=== PATIENT | female | born 1930 | race American Indian/Alaskan Native ===

== ENCOUNTER 2018-01-23 12:27 | Observation (INO) | payer OTHER ==
--- NOTE | 2018-01-23 13:33 | PDOC ---
History of Present Illness - General Chief Complaint: Pain Stated Complaint: HTN, abdominal pain History Source: Patient Exam Limitations: No Limitations - History of Present Illness Initial Comments: 01/23/18 13:35 87 yo F with hx of HTN, CAD (s/p stent 1x 2018), DM, HLD, and asthma BIBA from her adult day care program (pt lives by hersel for with abdominal pain that has been ongoing since yesterday. Per the patient son at bedside, he states his mother has severe short term memory loss (denies dementia dx). She began having sudden lower abdominal pain without radiation described as bloating and rated as 8/10 with partial relief gained using pepcid. Per the patient, her last BM was yesterday and denies hematochezia, diarrhea, nausea, vomiting, dysuria, hematuria, fever, chills, headache, vaginal bleeding/discharge, and leg pain/ swelling. Pmhx: Refer to above Shx: Denies abdominal surgeries. Denies surgery hx Meds: ezetimibe, acetaminophen, clopidogrel, and amlodipine. Allergies: NKDA Social: Denies tobacco, alcohol, and substance abuse Past History - Past Medical History Allergies/Adverse Reactions: Allergies Allergy/AdvReac Type Severity Reaction Status Date / Time No Known Allergies Allergy Unverified 01/23/18 12:46 Home Medications: Ambulatory Orders Acetaminophen 325 mg PO PRN 01/23/18 Amlodipine Besylate [Norvasc -] 5 mg PO DAILY 01/23/18 Clopidogrel Bisulfate [Plavix] 75 mg PO DAILY 01/23/18 Ezetimibe [Zetia -] 10 mg PO DAILY 01/23/18 Aspirin [ASA -] 81 mg PO DAILY 01/24/18 Ca/D3/Mag Ox/Zinc/Clinical Operations Specialist/Boaz/Bor [Cvs Calcium 600-D3 Plus Tablet] 1 each PO BID Carvedilol [Coreg] 6.25 mg PO BID 01/24/18 Losartan/Hydrochlorothiazide [Losartan-Hctz 50-12.5 mg Tab] 1 combo PO DAILY Memantine HCl [Namenda -] 10 mg PO DAILY 01/24/18 Asthma: Yes COPD: No Dementia: Yes (early Dementia? as reported by EMS) Diabetes: Yes HTN: Yes Hypercholesterolemia: Yes - Suicide/Smoking/Psychosocial Hx Smoking History: Never smoked Hx Alcohol Use: No Drug/Substance Use Hx: No Review of Systems - Review of Systems Able to Perform ROS?: Yes Is the patient limited Polish proficient: No Constitutional: No: Chills, Diaphoresis, Fever, Weakness HEENTM: No: Eye Pain, Recent change in vision, Ear Pain, Nose Pain, Throat Pain , Mouth Pain Respiratory: No: Cough, Shortness of Breath, Hemoptysis Cardiac (ROS): No: Chest Pain, Lightheadedness, Palpitations, Syncope, Chest Tightness ABD/GI: Yes: Abdominal cramping. No: Constipated, Diarrhea, Nausea, Poor Appetite, Poor Fluid Intake, Rectal Bleeding, Vomiting, Tarry Stools : Yes: Incontinence. No: Burning, Dysuria, Hematuria, Urgency Musculoskeletal: Yes: Back Pain (chronic). No: Joint Pain, Neck Pain Integumentary: No: Bruising Neurological: No: Headache, Numbness, Tremors, Ataxia, Dizziness Psychiatric: No: Stressors Endocrine: No: Excessive Sweating Hematologic/Lymphatic: No: Anemia *Physical Exam - Vital Signs Last Vital Signs Temp Pulse Resp BP Pulse Ox 97.8 F 70 18 171/85 H 97 01/23/18 12:41 01/23/18 12:41 01/23/18 12:41 01/23/18 12:41 01/23/18 12:41 - Physical Exam General Appearance: Yes: Nourished, Appropriately Dressed. No: Apparent Distress, Intoxicated HEENT: positive: EOMI, DAPHNE, Normal Voice, Symmetrical, Pharynx Normal, Hearing Grossly Normal. negative: Pale Conjunctivae, Scleral Icterus (R), Scleral Icterus (L), Muffled/Hoarse voice, Pharyngeal Erythema, Tonsillar Exudate, Excessive drooling Neck: positive: Trachea midline. negative: Tender, Lymphadenopathy (R), Lymphadenopathy (L), Tender lateral, Tender midline Respiratory/Chest: positive: Lungs Clear, Normal Breath Sounds. negative: Chest Tender, Respiratory Distress, Accessory Muscle Use, Crackles, Rales, Rhonchi, Stridor, Wheezing Cardiovascular: positive: Regular Rhythm, Regular Rate, S1, S2. negative: Systolic Murmur Gastrointestinal/Abdominal: positive: Tender (lower abdominal tenderness at suprapubic region. negative murphys), Flat, Soft, Increased Bowel Sounds. negative: Protuberent, Distended, Guarding, Rebound, Hernia Lymphatic: negative: Adenopathy Musculoskeletal: positive: Normal Inspection. negative: CVA Tenderness, Vertebral Tenderness Extremity: positive: Normal Capillary Refill, Normal Inspection, Normal Range of Motion. 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 negative: Fully Oriented (oriented to person only. per the son, she is at baseline) Moderate Sedation - Procedure Monitoring Vital Signs: Procedure Monitoring Vital Signs Temperature 97.8 F 01/23/18 12:41 Pulse Rate 70 01/23/18 12:41 Respiratory Rate 18 01/23/18 12:41 Blood Pressure 171/85 H 01/23/18 12:41 O2 Sat by Pulse Oximetry (%) 97 01/23/18 12:41 Heart Score/ECG Review - ECG Intrepretation Comment:: 01/23/18 16:31 ventricular rate is 70 bpm, VA 172 ms, QRS 78 ms. Normal sinus rhythm with q waves likely previous infarct in V1-V2. No st elevations or depressions noted. ED Treatment Course - LABORATORY CBC & Chemistry Diagram: 01/24/18 07:30 01/24/18 07:30 Medical Decision Making - Medical Decision Making 01/23/18 16:22 87 yo F with hx of HTN, CAD (s/p stent 1x 2017), DM, HLD, and asthma BIBA from her adult day care program (pt lives by [facility] for with abdominal pain that has been ongoing since yesterday. Initial vitals: Initial Vital Signs Temp Pulse Resp BP Pulse Ox 97.8 F 70 18 171/85 H 97 01/23/18 12:41 01/23/18 12:41 01/23/18 12:41 01/23/18 12:41 01/23/18 12:41 Work up: ddx: AAA, mesenteric ischemia, colitis, appendicitis, UTI, cystitis, constipation, SBO, volvulus. hx of cad with HLD and HTN is concerning for AAA. Laboratory Tests 01/23/18 01/23/18 01/23/18 13:23 13:23 13:23 WBC 8.7 RBC 4.59 Hgb 13.7 Hct 42.5 MCV 92.6 MCH 29.9 MCHC 32.3 RDW 14.3 Plt Count 124 L MPV 9.1 Absolute Neuts (auto) 7.1 Neutrophils % 81.7 Lymphocytes % 7.7 L Monocytes % 10.3 H Eosinophils % 0.1 Basophils % 0.2 Nucleated RBC % 0 PT with INR 12.40 INR 1.05 Sodium 136 Potassium 4.0 Chloride 102 Carbon Dioxide 28 Anion Gap 6 L BUN 21 H Creatinine 1.0 Creat Clearance w eGFR 52.45 Random Glucose 126 H Lactic Acid Calcium 7.9 L Total Bilirubin 0.6 AST 22 ALT 17 Alkaline Phosphatase 75 Creatine Kinase 176 Creatine Kinase Index 0.9 CK-MB (CK-2) 1.6 Troponin I 0.05 Total Protein 7.2 Albumin 3.0 L Lipase 122 Urine Color Urine Appearance Urine pH Ur Specific [place] Urine Protein Urine Glucose (UA) Urine Ketones Urine Blood Urine Nitrite Urine Bilirubin Urine Urobilinogen Ur Leukocyte Esterase Urine WBC (Auto) Urine RBC (Auto) Ur Epithelial Cells Urine Bacteria Urine Mucus 01/23/18 01/23/18 14:43 15:08 WBC RBC Hgb Hct MCV MCH MCHC RDW Plt Count MPV Absolute Neuts (auto) Neutrophils % Lymphocytes % Monocytes % Eosinophils % Basophils % Nucleated RBC % PT with INR INR Sodium Potassium Chloride Carbon Dioxide Anion Gap BUN Creatinine Creat Clearance w eGFR Random Glucose Lactic Acid 1.1 Calcium Total Bilirubin AST ALT Alkaline Phosphatase Creatine Kinase Creatine Kinase Index CK-MB (CK-2) Troponin I Total Protein Albumin Lipase Urine Color Yellow Urine Appearance Slcloudy Urine pH 6.0 Ur Specific [place] 1.015 Urine Protein 2+ H Urine Glucose (UA) Negative Urine Ketones Negative Urine Blood 1+ H Urine Nitrite Positive Urine Bilirubin Negative Urine Urobilinogen 2.0 H Ur Leukocyte Esterase 3+ H Urine WBC (Auto) 99 Urine RBC (Auto) 6 Ur Epithelial Cells Rare Urine Bacteria Moderate Urine Mucus Rare wbc was within normal limits. UA shows leuk est 3+, nitrite +, and moderate amount of bacteria. ct abdomen pelvis with oral and IV contrast shows no evidence of AAA enlargement (confirmed with our POCUS showing within normal limits aorta diameter), and no infection. bladder was consistent with cystitis. given the patient living by herself with health aides 3-7 pm daily with the son stating she has missed medications in the past she will need observation admission for IV ceftriaxone. Dispo: Admission *DC/Admit/Observation/Transfer Diagnosis at time of Disposition: UTI (urinary tract infection) Qualifiers: Urinary tract infection type: site unspecified Hematuria presence: without hematuria Qualified Code(s): N39.0 - Urinary tract infection, site not specified - Referrals - Patient Instructions - Post Discharge Activity
--- NOTE | 2018-01-23 13:35 | EKG ---
Test Reason : Blood Pressure : / mmHG Vent. Rate : 070 BPM Atrial Rate : 070 BPM P-R Int : 172 ms QRS Dur : 078 ms QT Int : 418 ms P-R-T Axes : -16 -29 016 degrees QTc Int : 451 ms NORMAL SINUS RHYTHM VOLTAGE CRITERIA FOR LEFT VENTRICULAR HYPERTROPHY CANNOT RULE OUT SEPTAL INFARCT , AGE UNDETERMINED ABNORMAL ECG NO PREVIOUS ECGS AVAILABLE Confirmed by RANDOLPH FREEMAN MD ([id number]) on 01/23/2018 1:35:34 PM Referred By: Confirmed By:RANDOLPH FREEMAN MD
[2018-01-23 13:45] LABS: BASO % 0.2 % (0-2.0); EOS % 0.1 % (0-4.5); HEMATOCRIT 42.5 % (32.4-45.2); HEMOGLOBIN 13.7 GM/dL (10.7-15.3); LYMPH % 7.7 % (8-40); MCH 29.9 pg (25.7-33.7); MCHC 32.3 g/dl (32.0-36.0); MEAN CELL VOLUME 92.6 fl (80-96); MEAN PLT VOLUME 9.1 fl (7.5-11.1); MONO % 10.3 % (3.8-10.2); NEUT % 81.7 % (42.8-82.8); PLATELET COUNT 124 K/MM3 (134-434); RBC 4.59 M/mm3 (3.60-5.2); RDW 14.3 % (11.6-15.6); WHITE BLOOD COUNT 8.7 K/mm3 (4.0-10.0)
[2018-01-23 13:57] LABS: INR 1.05 (0.83-1.09); PROTHROMBIN TIME (PATIENT) 12.4 SEC (9.7-13.0)
--- NOTE | 2018-01-23 14:10 | PDOC ---
Attending Attestation - HPI HPI: 01/23/18 14:32 The patient is an 87-year-old female with a past medical history significant for CAD s/p 1 Stent (?, 2018), HTN, and DM presents to the emergency department with lower abdominal pain since yesterday. The patient presents with a sudden onset of lower abdominal discomfort thats constant and bloating in nature, with mild relief noted with Pepcid. Denies dysuria, hematuria, diarrhea, nausea , vomiting. - Medical Decision Making 01/23/18 14:32 Documentation prepared by Kenzie Sanchez, acting as medical assistant instructor for Brian Workman MD. <Kenzie Sanchez - Last Filed: 01/23/18 14:32> - Resident Resident Name: Skyler Houston - ED Attending Attestation I have performed the following: I have examined & evaluated the patient, The case was reviewed & discussed with the resident, I agree w/resident's findings & plan, Exceptions are as noted - Physicial Exam PE: 01/23/18 16:17 Patient is awake and alert, well-nourished, in mild distress Normocephalic and atraumatic PERRLA, EOMI, no scleral icterus, conjunctiva are pink CTA RRR Abdomen is soft, nondistended, mild periumbilical and right-sided abdominal tenderness to deep palpation without guarding rebound, bowel sounds present in all 4 quadrants No CVA tenderness bilaterally - Medical Decision Making 01/23/18 16:19 Patient is an 87-year-old female with history of CAD who presents to the ER with periumbilical and right-sided abdominal pain associated with nausea. Differential diagnoses includes diverticulitis versus appendicitis versus mesenteric ischemia. Will hydrate, will obtain CT with by mouth and IV contrast. Will reassess. <Brian Workman - Last Filed: 01/23/18 16:20>
[2018-01-23 14:23] LABS: ALK PHOS 75 U/L (45-117); ANION GAP 6 MMOL/L (8-16); BILIRUBIN,TOTAL 0.6 mg/dL (0.2-1); BLOOD UREA NITROGEN 21 mg/dL (7-18); CALCIUM 7.9 mg/dL (8.5-10.1); CHLORIDE 102 mmol/L (98-107); CO2 28 mmol/L (21-32); GLUCOSE,RANDOM 126 mg/dL (74-106); LIPASE 122 U/L (73-393); SGOT/AST 22 U/L (15-37); SGPT/ALT 17 U/L (13-61); SODIUM 136 mmol/L (136-145); TOT PROT 7.2 g/dl (6.4-8.2)
[2018-01-23] MEDS ORDERED: SODIUM CHLORIDE 500 ML IV STA (14:27)
[2018-01-23] MEDS ORDERED: ACETAMINOPHEN 1000 MG/100 ML VIAL (NON FORMULARY) IVPB ONE (14:29)
[2018-01-23] MEDS ORDERED: ACETAMINOPHEN INJECTION 100 ML IVPB ONE (14:48)
[2018-01-23 15:41] LABS: URINE APPEARANCE SLCLOUDY; URINE BILIRUBIN NEGATIVE (<2.0 mg/dL); URINE COLOR YELLOW; URINE GLUCOSE (UA) NEGATIVE (NEGATIVE); URINE KETONE NEGATIVE (NEGATIVE); URINE LEUK ESTERASE 3+ (NEGATIVE); URINE NITRITE POSITIVE (NEGATIVE); URINE PROTEIN 2+ (NEGATIVE)
[2018-01-23 15:54] LABS: EPI CELLS RARE /HPF (FEW); URINE BACTERIA MODERATE /hpf (NONE SEEN); URINE MUCUS RARE
[2018-01-23] MEDS ORDERED: CEFTRIAXONE 1,000 MG in DEXTROSE 5%-WATER - 50 ML IVPB ONE (16:29)
[2018-01-23] MEDS ORDERED: CEFTRIAXONE 1 GM/50 ML BAG ONE (16:39)
--- NOTE | 2018-01-23 20:48 | PN ---
Teaching Attending Note Name of Resident: Amanda Oneill ATTENDING PHYSICIAN STATEMENT I saw and evaluated the patient. I reviewed the resident's note and discussed the case with the resident. I agree with the resident's findings and plan as documented. SUBJECTIVE: Patient is an 87 year old woman with history of HTN, early dementia, CAD (s/p stent 1x 2018), NIDDM, HLD, and asthma brought from her Adult Day Care program ( she lives alone) for abdominal pain that has been ongoing since yesterday. Per the patient son at bedside, he states his mother has severe short term memory loss. She began having sudden lower abdominal pain without radiation described as bloating and rated as 8/10 with partial relief gained using pepcid. Per the patient, her last BM was yesterday and denies hematochezia, diarrhea, nausea, vomiting, dysuria, hematuria, fever, chills, headache, vaginal bleeding/ discharge, and leg pain/swelling. OBJECTIVE: Alert Vital Signs Period Temp Pulse Resp BP Sys/Tena Pulse Ox Last 24 Hr 97.8 F-97.9 F 63-70 17-18 150-189/74-90 97-100 HEENT: No Jaundice, eye redness or discharge, PERRLA, EOMI. Normocephalic, atraumatic. External ears are normal and hearing is grossly intact. No nasal discharge. Neck: Supple, nontender. No palpable adenopathy or thyromegaly. No JVD Chest: Good effort. Clear to auscultation and percussion. Heart: Regular. No S3, rub or murmur Abdomen: Not distended, soft, lower abdominal and periumblical tenderness and no HSM. No rebound or guarding. Normoactive bowel sounds. Ext: Peripheral pulses intact. No leg edema. Skin: Warm and dry. No petechiae, rash or ecchymosis. Neuro: Alert. Oriented person. CN 2-12 grossly intact. Sensation grossly intact in all four extremities and DTR are symmetric. Home Medications Medication Instructions Recorded Acetaminophen 325 mg PO PRN 01/23/18 Amlodipine Besylate [Norvasc -] 5 mg PO DAILY 01/23/18 Clopidogrel Bisulfate [Plavix] 75 mg PO DAILY 01/23/18 Ezetimibe [Zetia -] 10 mg PO DAILY 01/23/18 Abnormal Lab Results 01/23/18 01/23/18 01/23/18 13:23 13:23 15:08 Plt Count 124 L Lymphocytes % 7.7 L Monocytes % 10.3 H Anion Gap 6 L BUN 21 H Random Glucose 126 H Calcium 7.9 L Albumin 3.0 L Urine Protein 2+ H Urine Blood 1+ H Urine Urobilinogen 2.0 H Ur Leukocyte Esterase 3+ H ASSESSMENT AND PLAN: 1. UTI - Being treated with Rocephin 1 gm IV q 24 hours pending culture report. No evidence of colitis or diverticulitis on CT abdomen. Will restart home antihypertensive drugs to attain normotension. Nonpharmacologic measures to control hypertension like weight loss, salt restriction and exercise discussed. Monitor low platelets. 2. Hypoalbuminemia - Possibly due to combined effects of malnutrition and inflammation associated with comorbid chronic conditions. Will ensure adequate dietary protein intake and also consult car body mechanic. 3. DM - Will implement sliding scale insulin regimen. Provide comprehensive diabetes care with patient teaching and counseling about the importance of euglycemia, eye care and foot care. 4.DVT prophylaxis - Lovenox 40 mg SQ q 24 hours. 5. Advance directives - Full code
[2018-01-23] MEDS ORDERED: SODIUM CHLORIDE 500 ML IV SCH (21:15)
--- NOTE | 2018-01-23 21:25 | HP ---
CHIEF COMPLAINT: Abdominal Pain PCP: Dr. Jimenez Arriaza HISTORY OF PRESENT ILLNESS: 87 y/o F with PMHx of HTN, CAD (s/p stent x1), DM, HLD, Asthma, Short term memory loss (No Dementia Dx) presents with Abdominal pain from her adult daycare center. Patient was accompanied by her son, Rene ([phone]), who provided most of the history. After eating dinner yesterday, patient began to feel discomfort that improved with pepcid. This morning, patient went to her Adult daycare where she was given breakfast. Approx. 2 hours later, patients son was called as patient began to experience severe discomfort, and she was brought to the ED. The discomfort came on all of a sudden and is described as a constant 8/10 bloating that did not radiate. This is the first time patient has experienced this. Denies any associated nausea, vomiting, diarrhea, constipation , weight loss, decreased PO Intake or loss of appetite. Patients Last BM was yesterday evening. During my interview, patient was eating Crackers and sipping on juice. Additionally her abdominal discomfort had significantly improved. Patient endorses chronic urinary frequency and urinary urgency. Denies any fevers, chills, chest pain, SOB, dysuria, hematuria, hematemesis, bloody stools. 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 Ambulation: With Cane Family History: Denies Allergies No Known Allergies Allergy (Unverified 01/23/18 12:46) HOME MEDICATIONS: Home Medications Medication Instructions Recorded Acetaminophen 325 mg PO PRN 01/23/18 Amlodipine Besylate [Norvasc -] 5 mg PO DAILY 01/23/18 Clopidogrel Bisulfate [Plavix] 75 mg PO DAILY 01/23/18 Ezetimibe [Zetia -] 10 mg PO DAILY 01/23/18 REVIEW OF SYSTEMS As per HPI PHYSICAL EXAMINATION Vital Signs - 24 hr 01/23/18 01/23/18 01/23/18 12:41 15:20 19:44 Temperature 97.8 F 97.9 F Pulse Rate 70 Pulse Rate [ 68 63 Apical] Respiratory 18 18 17 Rate Blood Pressure 171/85 H Blood Pressure 189/90 H 150/74 [Right Arm] O2 Sat by Pulse 97 100 97 Oximetry (%) GENERAL: A&Ox3, NAD, Sitting with bed upright HEAD: NCAT EYES: PERRL, EOMI EARS, NOSE, THROAT: Oropharynx clear without exudates. Moist mucous membranes. NECK: No lymphadenopathy or JVD LUNGS: Breath sounds equal, clear to auscultation bilaterally. No wheezes HEART: Regular rate and rhythm, normal S1 and S2 without murmur ABDOMEN: Soft, Discomfort upon palpation of the Suprapubic region and RUQ, not distended, + bowel sounds, no guarding, no rebound, Negative murphys sign, Negative Lloyds punch MUSCULOSKELETAL: No CVA tenderness. EXTREMITIES: 2+ pulses, No calf tenderness. Trace peripheral edema. NEUROLOGICAL: Cranial nerves II-XII intact. Normal speech. Gross sensation intact globally. 5/5 Muscles strength throughout. SKIN: Warm, dry, no rashes or lesions noted, normal capillary refill. Laboratory Results - last 24 hr 01/23/18 01/23/18 01/23/18 13:23 13:23 13:23 WBC 8.7 RBC 4.59 Hgb 13.7 Hct 42.5 MCV 92.6 MCH 29.9 MCHC 32.3 RDW 14.3 Plt Count 124 L MPV 9.1 Absolute Neuts (auto) 7.1 Neutrophils % 81.7 Lymphocytes % 7.7 L Monocytes % 10.3 H Eosinophils % 0.1 Basophils % 0.2 Nucleated RBC % 0 PT with INR 12.40 INR 1.05 Sodium 136 Potassium 4.0 Chloride 102 Carbon Dioxide 28 Anion Gap 6 L BUN 21 H Creatinine 1.0 Creat Clearance w eGFR 52.45 Random Glucose 126 H Lactic Acid Calcium 7.9 L Total Bilirubin 0.6 AST 22 ALT 17 Alkaline Phosphatase 75 Creatine Kinase 176 Creatine Kinase Index 0.9 CK-MB (CK-2) 1.6 Troponin I 0.05 Total Protein 7.2 Albumin 3.0 L Lipase 122 Urine Color Urine Appearance Urine pH Ur Specific [place] Urine Protein Urine Glucose (UA) Urine Ketones Urine Blood Urine Nitrite Urine Bilirubin Urine Urobilinogen Ur Leukocyte Esterase Urine WBC (Auto) Urine RBC (Auto) Ur Epithelial Cells Urine Bacteria Urine Mucus 01/23/18 01/23/18 14:43 15:08 WBC RBC Hgb Hct MCV MCH MCHC RDW Plt Count MPV Absolute Neuts (auto) Neutrophils % Lymphocytes % Monocytes % Eosinophils % Basophils % Nucleated RBC % PT with INR INR Sodium Potassium Chloride Carbon Dioxide Anion Gap BUN Creatinine Creat Clearance w eGFR Random Glucose Lactic Acid 1.1 Calcium Total Bilirubin AST ALT Alkaline Phosphatase Creatine Kinase Creatine Kinase Index CK-MB (CK-2) Troponin I Total Protein Albumin Lipase Urine Color Yellow Urine Appearance Slcloudy Urine pH 6.0 Ur Specific [place] 1.015 Urine Protein 2+ H Urine Glucose (UA) Negative Urine Ketones Negative Urine Blood 1+ H Urine Nitrite Positive Urine Bilirubin Negative Urine Urobilinogen 2.0 H Ur Leukocyte Esterase 3+ H Urine WBC (Auto) 99 Urine RBC (Auto) 6 Ur Epithelial Cells Rare Urine Bacteria Moderate Urine Mucus Rare Active Medications Enoxaparin Sodium (Lovenox -) 40 mg SQ DAILY SHANTE Insulin Aspart (Novolog Vial Sliding Scale -) 1 vial SQ ACHS SHANTE; Protocol IMAGING -CXR: No evidence of active pulmonary disease. Uncoiled thoracic aorta. Prominent cardiac silhouette. -CT A/P with contrast: No definite CT findings of acute pathology are identified. 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 Probable diffuse hepatic steatosis. Mild diffuse left renal cortical atrophy. Probable mild diffuse urinary bladder wall thickening - ? acute and/or chronic cystitis. A moderate to marked T12 vertebral body compression fracture is noted with mild bony retropulsion. This fracture is probably subacute or chronic. If there is ongoing symptomatology MRI evaluation is suggested, nonemergent unless otherwise clinically indicated. ASSESSMENT/PLAN: 87 y/o F with PMHx of HTN, CAD, DM, Short term memory loss presents with Abdominal pain. #UTI -UA reveals 1+ Blood, Nitrite positive, 3+ LE, 99 WBC, Moderate bacteria -Urine Cx pending -Pelvis CT Noted above -RUQ US ordered given Abd discomfort -Continue Ceftriaxone 1gm #DM -ISS BGMs ACHS #CAD with recent stenting -Continue Plavix #Hx of HTN -Can continue home dose Norvasc, Will need Med-Rec #FEN -Given 1/2L NS in ED; Continue on PO Fluids -Lytes WNL -Diabetic, Low sodium, low cholesterol diet #PPx -DVT: Lovenox Dispo: Observe on Med-Surg, Will need Med-Rec Visit type - Emergency Visit Emergency Visit: Yes ED Registration Date: 01/23/18 Care time: The patient presented to the Emergency Department on the above date and was hospitalized for further evaluation of their emergent condition. - New Patient This patient is new to me today: Yes Date on this admission: 01/25/18 - Critical Care Critical Care patient: No
[2018-01-23] MEDS: INSULIN SLIDING SCALE (NOVOLOG) 1 VIAL SQ SCH (23:13)
[2018-01-24] MEDS: ACETAMINOPHEN 325 MG TABLET (FP) PO ONE ×2 (02:17→03:23)
[2018-01-24 03:04] VITALS: BMI 23.1
[2018-01-24] MEDS: INSULIN SLIDING SCALE (NOVOLOG) 1 VIAL SQ SCH ×2 (06:11→12:03)
[2018-01-24 08:12] LABS: ALBUMIN 2.6 g/dl (3.4-5.0); ALK PHOS 63 U/L (45-117); ANION GAP 5 MMOL/L (8-16); BILIRUBIN,TOTAL 0.3 mg/dL (0.2-1); BLOOD UREA NITROGEN 15 mg/dL (7-18); CALCIUM 8.1 mg/dL (8.5-10.1); CHLORIDE 106 mmol/L (98-107); CO2 29 mmol/L (21-32); CREATININE 0.9 mg/dL (0.55-1.3); GLUCOSE,RANDOM 115 mg/dL (74-106); MAGNESIUM 2.7 mg/dL (1.8-2.4); PHOSPHOROUS 2.8 mg/dL (2.5-4.9); SGOT/AST 15 U/L (15-37); SGPT/ALT 16 U/L (13-61); SODIUM 140 mmol/L (136-145); TOT PROT 6.3 g/dl (6.4-8.2)
[2018-01-24 08:24] LABS: BASO % 0.2 % (0-2.0); EOS % 0.3 % (0-4.5); HEMATOCRIT 37.7 % (32.4-45.2); HEMOGLOBIN 13.1 GM/dL (10.7-15.3); LYMPH % 13.6 % (8-40); MCH 31.8 pg (25.7-33.7); MCHC 34.8 g/dl (32.0-36.0); MEAN CELL VOLUME 91.3 fl (80-96); MEAN PLT VOLUME 9.1 fl (7.5-11.1); MONO % 12.7 % (3.8-10.2); NEUT % 73.2 % (42.8-82.8); PLATELET COUNT 137 K/MM3 (134-434); RBC 4.13 M/mm3 (3.60-5.2); RDW 14.3 % (11.6-15.6); WHITE BLOOD COUNT 6.4 K/mm3 (4.0-10.0)
--- NOTE | 2018-01-24 08:57 | PN ---
Teaching Attending Note Name of Resident: Rylee Turner ATTENDING PHYSICIAN STATEMENT I saw and evaluated the patient. I reviewed the resident's note and discussed the case with the resident. I agree with the resident's findings and plan as documented. SUBJECTIVE: Patient is feeling better with no acute distress, no nausea or vomiting. Son is at bedside. OBJECTIVE: Vital Signs Temperature 98.2 F 01/24/18 02:00 Pulse Rate 72 01/24/18 02:00 Respiratory Rate 20 01/24/18 05:10 Blood Pressure 158/69 01/24/18 02:00 O2 Sat by Pulse Oximetry (%) 98 01/24/18 05:10 GENERAL: AAOx3, NAD, Sitting in bed comfortably. HEAD: NCAT, EYES: PERRL, EOMI EARS, NOSE, THROAT: Oropharynx clear without exudates. MMM. NECK: No lymphadenopathy or JVD LUNGS: Breath sounds equal, clear to auscultation bilaterally. No wheezes HEART: Regular rate and rhythm, normal S1 and S2 without murmur ABDOMEN: Soft, NT,ND, + bowel sounds. no guarding, no rebound. EXTREMITIES: 2+ pulses, No calf tenderness. Trace peripheral edema. NEUROLOGICAL: Cranial nerves II-XII intact. Normal speech. SKIN: Warm, dry, no rashes or lesions noted, normal capillary refill. CBCD WBC 6.4 K/mm3 (4.0-10.0) 01/24/18 07:30 RBC 4.13 M/mm3 (3.60-5.2) 01/24/18 07:30 Hgb 13.1 GM/dL (10.7-15.3) 01/24/18 07:30 Hct 37.7 % (32.4-45.2) 01/24/18 07:30 MCV 91.3 fl (80-96) 01/24/18 07:30 MCHC 34.8 g/dl (32.0-36.0) 01/24/18 07:30 RDW 14.3 % (11.6-15.6) 01/24/18 07:30 Plt Count 137 K/MM3 (134-434) 01/24/18 07:30 MPV 9.1 fl (7.5-11.1) 01/24/18 07:30 CMP Sodium 140 mmol/L (136-145) 01/24/18 07:30 Potassium 4.0 mmol/L (3.5-5.1) 01/24/18 07:30 Chloride 106 mmol/L (98-107) 01/24/18 07:30 Carbon Dioxide 29 mmol/L (21-32) 01/24/18 07:30 Anion Gap 5 MMOL/L (8-16) L 01/24/18 07:30 BUN 15 mg/dL (7-18) 01/24/18 07:30 Creatinine 0.9 mg/dL (0.55-1.3) 01/24/18 07:30 Creat Clearance w eGFR 59.23 (>60) 01/24/18 07:30 Random Glucose 115 mg/dL (74-106) H 01/24/18 07:30 Calcium 8.1 mg/dL (8.5-10.1) L 01/24/18 07:30 Total Bilirubin 0.3 mg/dL (0.2-1) 01/24/18 07:30 AST 15 U/L (15-37) 01/24/18 07:30 ALT 16 U/L (13-61) 01/24/18 07:30 Alkaline Phosphatase 63 U/L (45-117) 01/24/18 07:30 Total Protein 6.3 g/dl (6.4-8.2) L 01/24/18 07:30 Albumin 2.6 g/dl (3.4-5.0) L 01/24/18 07:30 CARDIAC ENZYMES Creatine Kinase 176 IU/L (26-192) 01/23/18 13:23 Troponin I 0.05 ng/ml (0.00-0.05) 01/23/18 13:23 Current Medications Generic Name Dose Route Start Last Admin Trade Name Freq PRN Reason Stop Dose Admin Clopidogrel Bisulfate 75 mg 01/24/18 10:00 Plavix - PO DAILY [facility] Aspirin 81mg po daily Enoxaparin Sodium 40 mg 01/24/18 10:00 Lovenox - SQ DAILY [facility] Insulin Aspart 1 vial 01/23/18 22:00 01/24/18 06:11 Novolog Vial Sliding Scale - SQ Not Given ACHS [facility] Protocol Home Medications Medication Instructions Recorded Acetaminophen 325 mg PO PRN 01/23/18 Amlodipine Besylate [Norvasc -] 5 mg PO DAILY 01/23/18 Clopidogrel Bisulfate [Plavix] 75 mg PO DAILY 01/23/18 Ezetimibe [Zetia -] 10 mg PO DAILY 01/23/18 Urine Test Results Urine Color Yellow 01/23/18 15:08 Urine Appearance Slcloudy 01/23/18 15:08 Urine pH 6.0 (5.0-8.0) 01/23/18 15:08 Ur Specific [place] 1.015 (1.010-1.035) 01/23/18 15:08 Urine Protein 2+ (NEGATIVE) H 01/23/18 15:08 Urine Glucose (UA) Negative (NEGATIVE) 01/23/18 15:08 Urine Ketones Negative (NEGATIVE) 01/23/18 15:08 Urine Blood 1+ (NEGATIVE) H 01/23/18 15:08 Urine Nitrite Positive (NEGATIVE) 01/23/18 15:08 Urine Bilirubin Negative (<2.0 mg/dL) 01/23/18 15:08 Ur Leukocyte Esterase 3+ (NEGATIVE) H 01/23/18 15:08 Ur Epithelial Cells Rare /HPF (FEW) 01/23/18 15:08 Urine Bacteria Moderate /hpf (NONE SEEN) 01/23/18 15:08 Urine Mucus Rare 01/23/18 15:08 Microbiology 01/23/18 15:00 Urine - Urine Clean Catch Urine Culture - Preliminary Lactose Fermenting Neg Bacilli -CXR: No evidence of active pulmonary disease. Uncoiled thoracic aorta. Prominent cardiac silhouette. -CT A/P with contrast: No definite CT findings of acute pathology are identified. 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 Probable diffuse hepatic steatosis. Mild diffuse left renal cortical atrophy. Probable mild diffuse urinary bladder wall thickening - ? acute and/or chronic cystitis. A moderate to marked T12 vertebral body compression fracture is noted with mild bony retropulsion. This fracture is probably subacute or chronic. If there is ongoing symptomatology MRI evaluation is suggested, non emergent unless otherwise clinically indicated. ASSESSMENT AND PLAN: Patient is an 87 y/o Female with PMHx of HTN, CAD, DM, Short term memory loss presents with Abdominal pain and was found to have UTI #Acute UTI on Rocephin improving, waiting for sensitivity for possible discharge in am #T2DM ISS BGMs ACHS #CAD with recent stenting, Continue Plavix and aspirin 81mg #Hx of HTN continue home Norvasc DVt Px: Lovenox discharge in am one sensitivity is available
[2018-01-24] MEDS: CLOPIDOGREL BISULFATE 75 MG TABLET (FP) PO SCH (10:33)
[2018-01-24] MEDS ORDERED: INSULIN (NOVOLOG) ASPART 100 UNITS/ML 10ML VIAL ONE ×2 (11:17→17:52)
[2018-01-24] MEDS ORDERED: cefTRIAXone SODIUM 1 GM VIAL ONE (11:40)
[2018-01-24] MEDS ORDERED: DEXTROSE 5%-WATER - 50 ML IVPB ONE (11:40)
[2018-01-24] MEDS: CEFTRIAXONE 1 GM in DEXTROSE 5%-WATER - 50 ML IVPB SCH (11:46)
[2018-01-24] MEDS: ENOXAPARIN NA (PORCINE) 40 MG/0.4 ML DISP.SYRIN SQ SCH (11:47)
[2018-01-24] MEDS: amLODIPine BESYLATE 5 MG TABLET (FP) PO SCH (11:47)
[2018-01-24] MEDS: EZETIMIBE 10 MG TABLET (FP) PO SCH (11:47)
[2018-01-24] MEDS ORDERED: LOSARTAN 50MG/HCTZ 12.5MG 1 TAB (FP) PO SCH (13:45)
[2018-01-24] MEDS ORDERED: [UNRECOGNIZED DRUG - OTHER] PO SCH (13:45)
--- NOTE | 2018-01-24 14:10 | PN ---
Physical Exam: SUBJECTIVE: Patient seen and examined at bedside. No acute events overnight. Pt denies bender/d, f/c, n/v, chest pain, sob, abd pain, urinary/bowel symptoms, blood in urine/stool. Son present at bedside. OBJECTIVE: Vital Signs Temperature 98.6 F 01/24/18 10:00 Pulse Rate 69 01/24/18 10:00 Respiratory Rate 18 01/24/18 10:00 Blood Pressure 173/84 H 01/24/18 10:00 O2 Sat by Pulse Oximetry (%) 98 01/24/18 05:10 GENERAL: A&Ox3, NAD, Sitting with bed upright HEAD: NCAT EYES: PERRL, EOMI EARS, NOSE, THROAT: Oropharynx clear without exudates. Moist mucous membranes. NECK: No lymphadenopathy or JVD LUNGS: Breath sounds equal, clear to auscultation bilaterally. No wheezes HEART: Regular rate and rhythm, normal S1 and S2 without murmur ABDOMEN: Soft, NT/ND. + bowel sounds, no guarding, no rebound, Negative murphys sign, MUSCULOSKELETAL: No CVA tenderness. EXTREMITIES: 2+ pulses, No calf tenderness. Trace peripheral edema. NEUROLOGICAL: Cranial nerves II-XII intact. Normal speech. Gross sensation intact globally. 5/5 Muscles strength throughout. SKIN: Warm, dry, no rashes or lesions noted, normal capillary refill. CBCD WBC 6.4 K/mm3 (4.0-10.0) 01/24/18 07:30 RBC 4.13 M/mm3 (3.60-5.2) 01/24/18 07:30 Hgb 13.1 GM/dL (10.7-15.3) 01/24/18 07:30 Hct 37.7 % (32.4-45.2) 01/24/18 07:30 MCV 91.3 fl (80-96) 01/24/18 07:30 MCHC 34.8 g/dl (32.0-36.0) 01/24/18 07:30 RDW 14.3 % (11.6-15.6) 01/24/18 07:30 Plt Count 137 K/MM3 (134-434) 01/24/18 07:30 MPV 9.1 fl (7.5-11.1) 01/24/18 07:30 CMP Sodium 140 mmol/L (136-145) 01/24/18 07:30 Potassium 4.0 mmol/L (3.5-5.1) 01/24/18 07:30 Chloride 106 mmol/L (98-107) 01/24/18 07:30 Carbon Dioxide 29 mmol/L (21-32) 01/24/18 07:30 Anion Gap 5 MMOL/L (8-16) L 01/24/18 07:30 BUN 15 mg/dL (7-18) 01/24/18 07:30 Creatinine 0.9 mg/dL (0.55-1.3) 01/24/18 07:30 Creat Clearance w eGFR 59.23 (>60) 01/24/18 07:30 Calcium 8.1 mg/dL (8.5-10.1) L 01/24/18 07:30 Total Bilirubin 0.3 mg/dL (0.2-1) 01/24/18 07:30 AST 15 U/L (15-37) 01/24/18 07:30 ALT 16 U/L (13-61) 01/24/18 07:30 Alkaline Phosphatase 63 U/L (45-117) 01/24/18 07:30 Total Protein 6.3 g/dl (6.4-8.2) L 01/24/18 07:30 Albumin 2.6 g/dl (3.4-5.0) L 01/24/18 07:30 Active Medications Amlodipine Besylate (Norvasc -) 5 mg PO DAILY [facility] Last Admin: 01/24/18 11:47 Dose: 5 mg Aspirin (Asa -) 81 mg PO DAILY [facility] Carvedilol (Coreg -) 6.25 mg PO BID [facility] Clopidogrel Bisulfate (Plavix -) 75 mg PO DAILY [facility] Last Admin: 01/24/18 10:33 Dose: 75 mg Ezetimibe (Zetia -) 10 mg PO DAILY [facility] Last Admin: 01/24/18 11:47 Dose: 10 mg Enoxaparin Sodium (Lovenox -) 40 mg SQ DAILY [facility] Last Admin: 01/24/18 11:47 Dose: 40 mg HCTZ/Losartan Potassium (Hyzaar -) tab PO DAILY [facility] Ceftriaxone Sodium 1 gm/ (Dextrose) 50 mls @ 100 mls/hr IVPB DAILY [facility]; Protocol Last Admin: 01/24/18 11:46 Dose: 100 mls/hr Memantine (Namenda -) 10 mg PO DAILY [facility] Non-Formulary Medication (Ca/D3/Mag Ox/Zinc/Administrator Of Home Health/Boaz/Bor [Cvs Calcium 600-D3 Plus Tablet]) 1 each PO BID [facility] IMAGING: * CXR: No evidence of active pulmonary disease. Uncoiled thoracic aorta. Prominent cardiac silhouette. * CT A/P with contrast: No definite CT findings of acute pathology are identified. 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 Probable diffuse hepatic steatosis. Mild diffuse left renal cortical atrophy. Probable mild diffuse urinary bladder wall thickening - ? acute and/or chronic cystitis. A moderate to marked T12 vertebral body compression fracture is noted with mild bony retropulsion. This fracture is probably subacute or chronic. If there is ongoing symptomatology MRI evaluation is suggested, nonemergent unless otherwise clinically indicated. * Abd U/S: Slight prominence of CBD and main pancreatic duct, otherwise normal. ASSESSMENT/PLAN: 87 y/o F with PMHx of HTN, CAD, DM, Short term memory loss presents with Abdominal pain. #UTI -UA reveals 1+ Blood, Nitrite positive, 3+ LE, 99 WBC; UCx showed lac- fermenting GNB -Pelvis CT and Abd u/s noted above -Continue Ceftriaxone 1gm daily -Await C/S for UCx, then switch to PO abx #CAD with recent stenting Cont home med: -Plavix 75 PO QD -Aspirin 81 PO QD -Coreg 6.25 PO qD #Hx of HTN Cont home meds: -Amlodipine 5 PO QD -Hyzaar QD #Dementia -Memantine 10 PO QD #FEN -Given 1/2L NS in ED; Continue on PO Fluids -Lytes WNL -Diabetic, Low sodium, low cholesterol diet #PPx -DVT: Lovenox 40 SQ QD Dispo -cont to monitor on med-surg -meds reconciled Visit type - Emergency Visit Emergency Visit: Yes ED Registration Date: 01/23/18 Care time: The patient presented to the Emergency Department on the above date and was hospitalized for further evaluation of their emergent condition. - New Patient This patient is new to me today: Yes Date on this admission: 01/24/18 - Critical Care Critical Care patient: No
[2018-01-24] MEDS: ASPIRIN 81 MG CHEWABLE TABLETS PO SCH (15:29)
[2018-01-24] MEDS: MEMANTINE HCL 10 MG TABLET (FP) PO SCH (15:29)
[2018-01-24] MEDS: CARVEDILOL 6.25 MG TABLET (FP) PO SCH ×2 (15:29→21:59)
[2018-01-24] MEDS ORDERED: PT OWN MED DRAWER 7, Y5N ONE (17:52)
[2018-01-24] MEDS: CALCIUM 500MG/VIT-D 200 UNITS COMBO TABLET (FP) PO SCH (21:59)
[2018-01-25 07:13] LABS: HEMATOCRIT 38.2 % (32.4-45.2); HEMOGLOBIN 12.7 GM/dL (10.7-15.3); MCH 30.9 pg (25.7-33.7); MCHC 33.3 g/dl (32.0-36.0); MEAN CELL VOLUME 92.8 fl (80-96); MEAN PLT VOLUME 9.4 fl (7.5-11.1); PLATELET COUNT 140 K/MM3 (134-434); RBC 4.12 M/mm3 (3.60-5.2); RDW 14.5 % (11.6-15.6); WHITE BLOOD COUNT 4.5 K/mm3 (4.0-10.0)
[2018-01-25 07:23] LABS: ANION GAP 7 MMOL/L (8-16); BLOOD UREA NITROGEN 15 mg/dL (7-18); CALCIUM 8.2 mg/dL (8.5-10.1); CHLORIDE 109 mmol/L (98-107); CO2 26 mmol/L (21-32); CREATININE 0.8 mg/dL (0.55-1.3); GLUCOSE,RANDOM 89 mg/dL (74-106); POTASSIUM 4.3 mmol/L (3.5-5.1); SODIUM 142 mmol/L (136-145)
[2018-01-25] MEDS ORDERED: LOSARTAN POTASSIUM 50 MG TABLET (FP) PO SCH (10:00)
--- NOTE | 2018-01-25 10:09 | PN ---
Teaching Attending Note Name of Resident: Rylee Turner ATTENDING PHYSICIAN STATEMENT I saw and evaluated the patient. I reviewed the resident's note and discussed the case with the resident. I agree with the resident's findings and plan as documented. SUBJECTIVE: Patient is feeling better with no acute distress. OBJECTIVE: Vital Signs Temperature 97.4 F L 01/25/18 06:00 Pulse Rate 56 L 01/25/18 06:00 Respiratory Rate 20 01/25/18 06:00 Blood Pressure 158/78 01/25/18 06:00 O2 Sat by Pulse Oximetry (%) 97 01/25/18 05:00 GENERAL: AAOx3, NAD, Sitting in bed comfortably. HEAD: NCAT, EYES: PERRL, EOMI EARS, NOSE, THROAT: Oropharynx clear without exudates. MMM. NECK: No lymphadenopathy or JVD LUNGS: Breath sounds equal, clear to auscultation bilaterally. No wheezes HEART: Regular rate and rhythm, normal S1 and S2 without murmur ABDOMEN: Soft, NT,ND, + bowel sounds. no guarding, no rebound. EXTREMITIES: 2+ pulses, No calf tenderness. no edema NEUROLOGICAL: Cranial nerves II-XII intact. Normal speech. SKIN: Warm, dry, no rashes or lesions noted, normal capillary refill. CBCD WBC 4.5 K/mm3 (4.0-10.0) 01/25/18 06:00 RBC 4.12 M/mm3 (3.60-5.2) 01/25/18 06:00 Hgb 12.7 GM/dL (10.7-15.3) 01/25/18 06:00 Hct 38.2 % (32.4-45.2) 01/25/18 06:00 MCV 92.8 fl (80-96) 01/25/18 06:00 MCHC 33.3 g/dl (32.0-36.0) 01/25/18 06:00 RDW 14.5 % (11.6-15.6) 01/25/18 06:00 Plt Count 140 K/MM3 (134-434) 01/25/18 06:00 MPV 9.4 fl (7.5-11.1) 01/25/18 06:00 CMP Sodium 142 mmol/L (136-145) 01/25/18 06:00 Potassium 4.3 mmol/L (3.5-5.1) 01/25/18 06:00 Chloride 109 mmol/L (98-107) H 01/25/18 06:00 Carbon Dioxide 26 mmol/L (21-32) 01/25/18 06:00 Anion Gap 7 MMOL/L (8-16) L 01/25/18 06:00 BUN 15 mg/dL (7-18) 01/25/18 06:00 Creatinine 0.8 mg/dL (0.55-1.3) 01/25/18 06:00 Creat Clearance w eGFR > 60 (>60) 01/25/18 06:00 Random Glucose 89 mg/dL (74-106) 01/25/18 06:00 Calcium 8.2 mg/dL (8.5-10.1) L 01/25/18 06:00 Total Bilirubin 0.3 mg/dL (0.2-1) 01/24/18 07:30 AST 15 U/L (15-37) 01/24/18 07:30 ALT 16 U/L (13-61) 01/24/18 07:30 Alkaline Phosphatase 63 U/L (45-117) 01/24/18 07:30 Total Protein 6.3 g/dl (6.4-8.2) L 01/24/18 07:30 Albumin 2.6 g/dl (3.4-5.0) L 01/24/18 07:30 CARDIAC ENZYMES Creatine Kinase 176 IU/L (26-192) 01/23/18 13:23 Troponin I 0.05 ng/ml (0.00-0.05) 01/23/18 13:23 Current Medications Generic Name Dose Route Start Last Admin Trade Name Freq PRN Reason Stop Dose Admin Amlodipine Besylate 5 mg 01/24/18 11:00 01/24/18 11:47 Norvasc - PO 5 mg DAILY [facility] Administration Aspirin 81 mg 01/24/18 13:45 01/24/18 15:29 Asa - PO 81 mg DAILY [facility] Administration Calcium Carbonate/Cholecalciferol 1 tab 01/24/18 22:00 01/24/18 21:59 Os-Tone 500+D - PO 1 tab BID [facility] Administration Carvedilol 6.25 mg 01/24/18 13:45 01/24/18 21:59 Coreg - PO 6.25 mg BID [facility] Administration Clopidogrel Bisulfate 75 mg 01/24/18 10:00 01/24/18 10:33 Plavix - PO 75 mg DAILY [facility] Administration Ezetimibe 10 mg 01/24/18 11:45 01/24/18 11:47 Zetia - PO 10 mg DAILY [facility] Administration Enoxaparin Sodium 40 mg 01/24/18 10:00 01/24/18 11:47 Lovenox - SQ 40 mg DAILY [facility] Administration Ceftriaxone Sodium 1 gm/ 50 mls @ 100 mls/hr 01/24/18 11:45 01/24/18 11:46 Dextrose IVPB 100 mls/hr DAILY [facility] Administration Protocol Losartan Potassium 50 mg 01/25/18 10:00 Cozaar - PO DAILY [facility] Memantine 10 mg 01/24/18 13:45 01/24/18 15:29 Namenda - PO 10 mg DAILY [facility] Administration Home Medications Medication Instructions Recorded Acetaminophen 325 mg PO PRN 01/23/18 Amlodipine Besylate [Norvasc -] 5 mg PO DAILY 01/23/18 Clopidogrel Bisulfate [Plavix] 75 mg PO DAILY 01/23/18 Ezetimibe [Zetia -] 10 mg PO DAILY 01/23/18 Aspirin [ASA -] 81 mg PO DAILY 01/24/18 Ca/D3/Mag Ox/Zinc/Ict Trainer/Boaz/Bor 1 each PO BID 01/24/18 [Cvs Calcium 600-D3 Plus Tablet] Carvedilol [Coreg] 6.25 mg PO BID 01/24/18 Losartan/Hydrochlorothiazide 1 combo PO DAILY 01/24/18 [Losartan-Hctz 50-12.5 mg Tab] Memantine HCl [Namenda -] 10 mg PO DAILY 01/24/18 -CXR: No evidence of active pulmonary disease. Uncoiled thoracic aorta. Prominent cardiac silhouette. -CT A/P with contrast: No definite CT findings of acute pathology are identified. 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 Probable diffuse hepatic steatosis. Mild diffuse left renal cortical atrophy. Probable mild diffuse urinary bladder wall thickening - ? acute and/or chronic cystitis. A moderate to marked T12 vertebral body compression fracture is noted with mild bony retropulsion. This fracture is probably subacute or chronic. If there is ongoing symptomatology MRI evaluation is suggested, non emergent unless otherwise clinically indicated. Microbiology 01/23/18 15:00 Urine - Urine Clean Catch Urine Culture - Final Escherichia Coli ASSESSMENT AND PLAN: Patient is an 87 y/o Female with PMHx of HTN, CAD, DM, Short term memory loss presents with Abdominal pain and was found to have UTI #Acute UTI on Rocephin improving, will discharge the patient on Ceftin for 4 more days. #T2DM ISS BGMs ACHS #CAD with recent stenting, Continue Plavix and aspirin 81mg #Hx of HTN continue home Norvasc will discharge patient home today.
[2018-01-25] MEDS ORDERED: DEXTROSE 5%-WATER - 50 ML IVPB ONE (11:41)
[2018-01-25] MEDS ORDERED: cefTRIAXone SODIUM 1 GM VIAL ONE (11:41)
[2018-01-25] MEDS: MEMANTINE HCL 10 MG TABLET (FP) PO SCH (11:51)
[2018-01-25] MEDS: CEFTRIAXONE 1 GM in DEXTROSE 5%-WATER - 50 ML IVPB SCH (11:51)
[2018-01-25] MEDS: EZETIMIBE 10 MG TABLET (FP) PO SCH (11:51)
[2018-01-25] MEDS: CARVEDILOL 6.25 MG TABLET (FP) PO SCH (11:51)
[2018-01-25] MEDS: ASPIRIN 81 MG CHEWABLE TABLETS PO SCH (11:51)
[2018-01-25] MEDS: CALCIUM 500MG/VIT-D 200 UNITS COMBO TABLET (FP) PO SCH (11:51)
[2018-01-25] MEDS: CLOPIDOGREL BISULFATE 75 MG TABLET (FP) PO SCH (11:52)
[2018-01-25] MEDS: ENOXAPARIN NA (PORCINE) 40 MG/0.4 ML DISP.SYRIN SQ SCH (11:52)
[2018-01-25] MEDS: amLODIPine BESYLATE 5 MG TABLET (FP) PO SCH (11:52)
[2018-01-25 12:19] VITALS: BP 172/77; PULSE 61; TEMP 98.8
--- NOTE | 2018-01-25 19:25 | DS ---
Physical Exam: SUBJECTIVE: Patient seen and examined. No acute events overnight. OBJECTIVE: Vital Signs Period Temp Pulse Resp BP Sys/Tena Pulse Ox Last 24 Hr 97.4 F-98.8 F 56-66 18-20 155-172/77-88 96-97 PHYSICAL EXAM GENERAL: A&Ox3, NAD, Sitting with bed upright HEAD: NCAT EYES: PERRL, EOMI EARS, NOSE, THROAT: Oropharynx clear without exudates. Moist mucous membranes. NECK: No lymphadenopathy or JVD LUNGS: Breath sounds equal, clear to auscultation bilaterally. No wheezes HEART: Regular rate and rhythm, normal S1 and S2 without murmur ABDOMEN: Soft, NT/ND. + bowel sounds, no guarding, no rebound, Negative murphys sign, MUSCULOSKELETAL: No CVA tenderness. EXTREMITIES: 2+ pulses, No calf tenderness. Trace peripheral edema. NEUROLOGICAL: Cranial nerves II-XII intact. Normal speech. Gross sensation intact globally. 5/5 Muscles strength throughout. SKIN: Warm, dry, no rashes or lesions noted, normal capillary refill. LABS Laboratory Results - last 24 hr 01/25/18 01/25/18 06:00 06:00 WBC 4.5 RBC 4.12 Hgb 12.7 Hct 38.2 MCV 92.8 MCH 30.9 MCHC 33.3 RDW 14.5 Plt Count 140 MPV 9.4 Sodium 142 Potassium 4.3 Chloride 109 H Carbon Dioxide 26 Anion Gap 7 L BUN 15 Creatinine 0.8 Creat Clearance w eGFR > 60 Random Glucose 89 Calcium 8.2 L HOSPITAL COURSE: Date of Admission:01/23/18 IMAGING: * CXR: No evidence of active pulmonary disease. Uncoiled thoracic aorta. Prominent cardiac silhouette. * CT A/P with contrast: No definite CT findings of acute pathology are identified. 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 Probable diffuse hepatic steatosis. Mild diffuse left renal cortical atrophy. Probable mild diffuse urinary bladder wall thickening - ? acute and/or chronic cystitis. A moderate to marked T12 vertebral body compression fracture is noted with mild bony retropulsion. This fracture is probably subacute or chronic. If there is ongoing symptomatology MRI evaluation is suggested, nonemergent unless otherwise clinically indicated. * Abd U/S: Slight prominence of CBD and main pancreatic duct, otherwise normal. 87 y/o F with PMHx of HTN, CAD (s/p stent x1), DM, HLD, Asthma, Short term memory loss (No Dementia Dx) presented with Abdominal pain from her adult [facility]. Pt was found to have a UTI after which she was treated with Cetriaxone. Due to complaints of abd pain, CTAP was ordered that was unremarkable for acute pathology. Abd U/S showed slightly enlarged CBD and main pancreatic duct, otherwise unremarkable. Pt's symptoms improved and subsequently discharged to home with Ceftin. She was also advised to follow up with her primary care physician. Date of Discharge: 01/25/18 Minutes to complete discharge: 36 Discharge Summary Reason For Visit: URINARY TRACT INFECTION Condition: Improved - Instructions Diet, Activity, Other Instructions: You were seen in the hospital for complaints of abdominal pain. In the hospital, you were found to have a urinary tract infection. You were given antibiotics and your abdominal pain improved. You are being discharged home. MEDICAL RECOMMENDATIONS For treatment of your UTI, please take Ceftin 250 mg 2x per day for 4 more days. You can start taking this medication tomorrow, 01/26/18. Please continue taking all of your home medications as directed. Please do not take Losartan with HcTZ instead take Losartan 50mg orally daily. CONSULT RECOMMENDATIONS Please follow up with your primary care physician, Dr. Jimenez Arriaza, within 1 week. If you experience persistent fever/chills, nausea/vomiting, abdominal pain, chest pain, shortness of breath, difficulty breathing, or altered mental status , please proceed to your nearest emergency room immediately. Disposition: HOME - Home Medications Comprehensive Discharge Medication List: Ambulatory Orders Acetaminophen 325 mg PO PRN 01/23/18 Amlodipine Besylate [Norvasc -] 5 mg PO DAILY 01/23/18 Clopidogrel Bisulfate [Plavix] 75 mg PO DAILY 01/23/18 Ezetimibe [Zetia -] 10 mg PO DAILY 01/23/18 Aspirin [ASA -] 81 mg PO DAILY 01/24/18 Ca/D3/Mag Ox/Zinc/Sap Bobj Developer/Boaz/Bor [Cvs Calcium 600-D3 Plus Tablet] 1 each PO BID Carvedilol [Coreg] 6.25 mg PO BID 01/24/18 Memantine HCl [Namenda -] 10 mg PO DAILY 01/24/18 Cefuroxime Axetil [Ceftin -] 250 mg PO BID #8 tablet 01/25/18 Losartan Potassium 50 mg PO DAILY #30 tablet 01/25/18 This patient is new to me today: No Emergency Visit: Yes ED Registration Date: 01/23/18 Care time: The patient presented to the Emergency Department on the above date and was hospitalized for further evaluation of their emergent condition. Critical Care patient: No - Discharge Referral Referred to [facility] No
== END 2018-01-25 14:34 | disposition home or self-care (01) ==
LOC: JER 12:27 → JERBED 20:43 → J5S 01-24 01:58
PROVIDERS: ADMIT Internal Medicine; ATTEND Internal Medicine
PROC: 3E03329 Introduction of Other Anti-infective into Peripheral Vein, Percutaneous Approach (ICD-10-PCS; principal; 2018-01-23)
PROC: 3E033NZ Introduction of Analgesics, Hypnotics, Sedatives into Peripheral Vein, Percutaneous Approach (ICD-10-PCS; 2018-01-23)
PROC: 3E0337Z Introduction of Electrolytic and Water Balance Substance into Peripheral Vein, Percutaneous Approach (ICD-10-PCS; 2018-01-23)
PROC: 3E013GC Introduction of Other Therapeutic Substance into Subcutaneous Tissue, Percutaneous Approach (ICD-10-PCS; 2018-01-23)
DX: N39.0 Urinary tract infection, site not specified (principal); R77.0 Abnormality of albumin; I10 Essential (primary) hypertension; E78.5 Hyperlipidemia, unspecified; E11.9 Type 2 diabetes mellitus without complications; I25.10 Atherosclerotic heart disease of native coronary artery without angina pectoris; J45.909 Unspecified asthma, uncomplicated; Z95.5 Presence of coronary angioplasty implant and graft; Z79.82 Long term (current) use of aspirin
CPT/HCPCS: 36415; 71045-TC-FY; 74177-TC; 76705-TC; 80048; 80053; 81003; 81015; 82550; 82553; 82962; 83605; 83690; 83735; 84100; 84484; 85025; 85027; 85610; 87086; 87186; 93005; 93010; 96361; 96365; 96372; 96374; 96375; 97116-GP; 97162-GP; 99285-25; G0378; J0131; Q9967